=== PATIENT | female | born 1985 | race Caucasian/White ===

== ENCOUNTER 2017-10-26 16:33 | Emergency (ER) | payer OTHER ==
[~2017-10-26] VITALS: Ht 160 cm; Wt 61.7 kg
[2017-10-26] MEDS ORDERED: PRISTIQ ER100 MG PO (16:53)
[2017-10-26] MEDS ORDERED: SYNTHROID137 MCG ORAL (16:53)
[2017-10-26] MEDS ORDERED: LOVENOX10 M1 SUBQ (16:53)
[2017-10-26] MEDS ORDERED: CATAPRES0.2 MG ORAL (16:53)
[2017-10-26] MEDS ORDERED: KLONOPIN2 MG PO (16:53)
[2017-10-26] MEDS ORDERED: BELSOMRA20 MG PO (16:53)
[2017-10-26] MEDS ORDERED: CLONIDINE 0.2M0.2 MG GT (17:09)
[2017-10-26 17:15] VITALS: BP 105/68
[2017-10-26] MEDS ORDERED: cloNIDine 0.2mg Tab ORAL ONE (17:15)
[2017-10-26 17:16] VITALS: BP 105/68
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
== END 2017-10-26 18:20 | disposition home or self-care (01) ==
LOC: EMR 18:10
DX: Z76.0 Encounter for issue of repeat prescription (principal); G35 Multiple sclerosis; G24.9 Dystonia, unspecified; Z88.6 Allergy status to analgesic agent; Z88.8 Allergy status to other drugs, medicaments and biological substances
CPT/HCPCS: 99282